=== PATIENT | male | born 1985 | race Caucasian/White ===

== ENCOUNTER 2017-10-23 11:42 | Emergency (ER) | payer OTHER ==
[2017-10-23] MEDS ORDERED: Albuterol 2.5 MG/3 ML NEB.SOL* (0.083%) INH ONE (15:06)
[2017-10-23 15:14] LABS: ABS Basophils 0.1 10^3/ul (0-0.2); ABS Eosinophils 0.2 10^3/ul (0-0.6); ABS Lymphocytes 2.3 10^3/ul (1.0-4.8); ABS Monocytes 0.9 10^3/ul (0-0.8); ABS Neutrophils 9.2 10^3/ul (1.5-7.7); ABS Nucleated RBC 0 10^3/ul; Eosinophil % 1.7 % (0-6); Hematocrit 41 % (42-52); Hemoglobin 14.4 g/dl (14.0-18.0); Lymphocyte % 17.9 % (25-47); Mean Corpuscular HGB Conc 35 g/dl (31-36); Mean Corpuscular Hemoglobin 30 pg (27-31); Mean Corpuscular Volume 85 fL (80-94); Mean Platelet Volume 7 um3 (7.4-10.4); Nucleated Red Blood Cells % 0; Platelet Count 329 10^3/ul (150-450); Red Blood Count 4.82 10^6/ul (4.0-5.4); Red Cell Distribution Width 13 % (10.5-15); White Blood Count 12.8 10^3/ul (3.5-10.8)
--- NOTE | 2017-10-23 15:21 | RAD ---
HISTORY: Coughing up blood COMPARISONS: September 26, 2014 VIEWS: 4: Frontal dual-energy and lateral views of the chest. FINDINGS: CARDIOMEDIASTINAL SILHOUETTE: The cardiomediastinal silhouette is normal. MAXIMILIAN: The maximilian are normal. PLEURA: The costophrenic angles are sharp. No pleural abnormalities are noted. LUNG PARENCHYMA: The lungs are clear. ABDOMEN: The upper abdomen is clear. There is no subphrenic gas. BONES AND SOFT TISSUES: No bone or soft tissue abnormalities are noted. OTHER: None. IMPRESSION: NO ACTIVE CARDIOPULMONARY DISEASE.
[2017-10-23 15:27] LABS: INR 1.06 (0.77-1.02)
[2017-10-23 15:37] LABS: EGFR Non-African American 119.6 (>60)
[2017-10-23] MEDS ORDERED: Acetaminophen TAB* 325 MG ONE (15:47)
[2017-10-23] MEDS ORDERED: Acetaminophen TAB* 325 MG PO ONE (15:48)
[2017-10-23 16:54] LABS: Urine Appearance Cloudy; Urine Blood Negative (Negative); Urine Color Yellow; Urine Ketones 1+ (Negative); Urine Protein Negative (Negative); Urine Specific Gravity 1.018 (1.010-1.030); Urine Urobilinogen Negative (Negative)
[2017-10-23 17:17] VITALS: BP 122/71
--- NOTE | 2017-10-23 19:57 | ED ---
Hussain Younger Angela, scribed for Ciara Pool MD on 10/23/17 at 1455 . Complex/Multi-Sys Presentation - HPI Summary HPI Summary: This pt is a 31 y/o male presenting [facility] c/o headache, cough, cold chills for the past 2 days. Pt states he can't breathe. Pt reports he has been coughing up blood for the past 2 days. The last time he coughed up blood was this morning upon waking up, he took a picture with his phone. The picture shows mucous with bloody streaks. Pt reports he had nausea this morning so he went to the bathroom, and spit up blood. Pt additionally notes fever, max temperature was 102 F last night. He notes these symptoms feel like pneumonia. He did not have a flu shot this year. Pt is a former smoker (quit 3 years ago). PMHx: pneumonia, asthma. NKDA. Surgeries: hernia repair. - History Of Current Complaint Chief Complaint: EDGeneral Time Seen by Provider: 10/23/17 14:40 Hx Obtained From: Patient Onset/Duration: Lasting Days, Still Present Timing: Constant, Days Severity Currently: Moderate Character: Typical Headache Aggravating Factor(s): nothing Alleviating Factor(s): nothing Associated Signs And Symptoms: Positive: Headache, Cough, Hemoptysis, Nausea, Fever - Allergies/Home Medications Allergies/Adverse Reactions: Allergies Allergy/AdvReac Type Severity Reaction Status Date / Time No Known Allergies Allergy Verified 10/23/17 12:24 PMH/Surg Hx/FS Hx/Imm Hx Endocrine/Hematology History: Denies: Hx Diabetes, Hx Thyroid Disease Cardiovascular History: Denies: Hx Hypertension, Hx Pacemaker/ICD Respiratory History: Denies: Hx Chronic Obstructive Pulmonary Disease (COPD) GI History: Denies: Hx Ulcer Neurological History: Denies: Other Neuro Impairments/Disorders Psychiatric History: Denies: Hx Panic Disorder - Surgical History Surgery Procedure, Year, and Place: ABD SURGERY- HERNIA 2012 - [facility] Infectious Disease History: No Infectious Disease History: Denies: Hx Hepatitis, Hx Human Immunodeficiency Virus (HIV), History Other Infectious Disease, Traveled Outside the [place] in Last 30 Days - Family History Known Family History: Positive: Other - Asthma, depression - Social History Alcohol Use: Occasionally Alcohol Amount: past hx ETOH overuse Substance Use Type: Reports: None Smoking Status (MU): Former Smoker Type: Cigarettes Amount Used/How Often: 6 cig./day Review of Systems Positive: Fever, Chills Positive: Cough Positive: Nausea. Negative: Vomiting Positive: Headache All Other Systems Reviewed And Are Negative: Yes Physical Exam - Summary Physical Exam Summary: Appearance: Ill-appearing, no pain distress, Well-nourished Skin: Warm, color reflects adequate perfusion. Pt is diaphoretic. Head: Normal Head/Face inspection Eyes: Conjunctiva clear ENT: Nasal congestion. Erythematous posterior pharynx. Horrible denture. Neck: Supple, no nodes, no JVD Respiratory: Lungs clear, Normal breath sounds. Pt can't take a deep breath without coughing. He has inspiratory wheezes scattered. Cardio: RRR, No murmur, pulses normal, brisk capillary refill Abdomen: soft, nontender Bowel sounds: present Musculoskeletal: Strength Intact/ ROM intact. No calf tenderness. No edema. Neuro: Alert, muscle tone normal, facial symmetry, speech normal, sensory/motor intact Psychological: Normal Triage Information Reviewed: Yes Vital Signs On Initial Exam: Initial Vitals Temp Pulse Resp BP Pulse Ox 98.8 F 96 20 140/89 97 10/23/17 12:21 10/23/17 12:21 10/23/17 12:21 10/23/17 12:21 10/23/17 12:21 Vital Signs Reviewed: Yes Diagnostics - Vital Signs Vital Signs Temp Pulse Resp BP Pulse Ox 10/23/17 12:21 98.8 F 96 20 140/89 97 - Laboratory Lab Results: Lab Results 10/23/17 10/23/17 10/23/17 Range/Units 14:58 14:58 14:58 WBC 12.8 H (3.5-10.8) 10^3/ul RBC 4.82 (4.0-5.4) 10^6/ul Hgb 14.4 (14.0-18.0) g/dl Hct 41 L (42-52) % MCV 85 (80-94) fL MCH 30 (27-31) pg MCHC 35 (31-36) g/dl RDW 13 (10.5-15) % Plt Count 329 (150-450) 10^3/ul MPV 7 L (7.4-10.4) um3 Neut % (Auto) 72.3 (38-83) % Lymph % (Auto) 17.9 L (25-47) % [place] % (Auto) 7.4 (1-9) % Eos % (Auto) 1.7 (0-6) % Baso % (Auto) 0.7 (0-2) % Absolute Neuts (auto) 9.2 H (1.5-7.7) 10^3/ul Absolute Lymphs (auto) 2.3 (1.0-4.8) 10^3/ul Absolute Monos (auto) 0.9 H (0-0.8) 10^3/ul Absolute Eos (auto) 0.2 (0-0.6) 10^3/ul Absolute Basos (auto) 0.1 (0-0.2) 10^3/ul Absolute Nucleated RBC 0 10^3/ul Nucleated RBC % 0 INR (Anticoag Therapy) 1.06 H (0.77-1.02) APTT 32.0 (26.0-36.3) seconds D-Dimer, Quantitative < 200 (Less Than 230) ng/mL Sodium 136 (133-145) mmol/L Potassium 3.6 (3.5-5.0) mmol/L Chloride 105 (101-111) mmol/L Carbon Dioxide 24 (22-32) mmol/L Anion Gap 7 (2-11) mmol/L BUN 10 (6-24) mg/dL Creatinine 0.76 (0.67-1.17) mg/dL Est GFR ( Amer) 153.8 (>60) Est GFR (Non-Af Amer) 119.6 (>60) BUN/Creatinine Ratio 13.2 (8-20) Glucose 92 (70-100) mg/dL Lactic Acid (0.5-2.0) mmol/L Calcium 9.1 (8.6-10.3) mg/dL Total Bilirubin 0.60 (0.2-1.0) mg/dL AST 14 (13-39) U/L ALT 16 (7-52) U/L Alkaline Phosphatase 97 (34-104) U/L Total Creatine Kinase 113 (10-223) U/L CK-MB (CK-2) 1.5 (0.6-6.3) ng/mL Troponin I 0.01 (<0.04) ng/mL C-Reactive Protein 42.41 H (< 5.00) mg/L Total Protein 6.8 (6.4-8.9) g/dL Albumin 3.7 (3.2-5.2) g/dL Globulin 3.1 (2-4) g/dL Albumin/Globulin Ratio 1.2 (1-3) Urine Color Urine Appearance Urine pH (5-9) Ur Specific [place] (1.010-1.030) Urine Protein (Negative) Urine Ketones (Negative) Urine Blood (Negative) Urine Nitrate (Negative) Urine Bilirubin (Negative) Urine Urobilinogen (Negative) Ur Leukocyte Esterase (Negative) Urine Glucose (Negative) Influenza A (Rapid) (Negative) Influenza B (Rapid) (Negative) 10/23/17 10/23/17 10/23/17 Range/Units 14:58 15:55 16:08 WBC (3.5-10.8) 10^3/ul RBC (4.0-5.4) 10^6/ul Hgb (14.0-18.0) g/dl Hct (42-52) % MCV (80-94) fL MCH (27-31) pg MCHC (31-36) g/dl RDW (10.5-15) % Plt Count (150-450) 10^3/ul MPV (7.4-10.4) um3 Neut % (Auto) (38-83) % Lymph % (Auto) (25-47) % [place] % (Auto) (1-9) % Eos % (Auto) (0-6) % Baso % (Auto) (0-2) % Absolute Neuts (auto) (1.5-7.7) 10^3/ul Absolute Lymphs (auto) (1.0-4.8) 10^3/ul Absolute Monos (auto) (0-0.8) 10^3/ul Absolute Eos (auto) (0-0.6) 10^3/ul Absolute Basos (auto) (0-0.2) 10^3/ul Absolute Nucleated RBC 10^3/ul Nucleated RBC % INR (Anticoag Therapy) (0.77-1.02) APTT (26.0-36.3) seconds D-Dimer, Quantitative (Less Than 230) ng/mL Sodium (133-145) mmol/L Potassium (3.5-5.0) mmol/L Chloride (101-111) mmol/L Carbon Dioxide (22-32) mmol/L Anion Gap (2-11) mmol/L BUN (6-24) mg/dL Creatinine (0.67-1.17) mg/dL Est GFR ( Amer) (>60) Est GFR (Non-Af Amer) (>60) BUN/Creatinine Ratio (8-20) Glucose (70-100) mg/dL Lactic Acid 0.9 (0.5-2.0) mmol/L Calcium (8.6-10.3) mg/dL Total Bilirubin (0.2-1.0) mg/dL AST (13-39) U/L ALT (7-52) U/L Alkaline Phosphatase (34-104) U/L Total Creatine Kinase (10-223) U/L CK-MB (CK-2) (0.6-6.3) ng/mL Troponin I (<0.04) ng/mL C-Reactive Protein (< 5.00) mg/L Total Protein (6.4-8.9) g/dL Albumin (3.2-5.2) g/dL Globulin (2-4) g/dL Albumin/Globulin Ratio (1-3) Urine Color Yellow Urine Appearance Cloudy Urine pH 7.0 (5-9) Ur Specific [place] 1.018 (1.010-1.030) Urine Protein Negative (Negative) Urine Ketones 1+ H (Negative) Urine Blood Negative (Negative) Urine Nitrate Negative (Negative) Urine Bilirubin Negative (Negative) Urine Urobilinogen Negative (Negative) Ur Leukocyte Esterase Negative (Negative) Urine Glucose Negative (Negative) Influenza A (Rapid) Negative (Negative) Influenza B (Rapid) Negative (Negative) Result Diagrams: 10/23/17 14:58 10/23/17 14:58 Lab Statement: Any lab studies that have been ordered have been reviewed, and results considered in the medical decision making process. - Radiology Chest XR Xray Interpretation: No Acute Changes - IMPRESSION: No active cardiopulmonary disease. Dr. Pool has reviewed this radiology report. Radiology Interpretation Completed By: Radiologist Re-Evaluation - Re-Evaluation First Eval Re-Evaluation Time: 17:07 Comment: I reviewed the XR and lab results with the pt. Complex Multi-Symp Course/Dx Course Of Treatment: Pt medications reviewed this visit. High blood pressure noted. Rapid influenza A and B are negative. Pt will be discharged to home with a prescription for Azithromycin, prednisone, and albuterol inhaler. - Diagnoses Provider Diagnoses: Elevated blood pressure reading without diagnosis of hypertension, Bronchitis, Hemoptysis Discharge - Discharge Plan Condition: Stable Disposition: HOME Prescriptions: Albuterol HFA INHALER* [Ventolin HFA Inhaler*] 1 - 2 puff INH Q4H PRN #1 mdi PRN Reason: Cough Azithromycin TAB* [Zithromax TAB (Z-ZENON) 250 mg #6 tabs] 2 tab PO .TODAY, THEN 1 DAILY #1 zenon predniSONE TAB* [Deltasone TAB*] 40 mg PO DAILY #10 tab Patient Education Materials: Acute Bronchitis (ED), Hemoptysis (ED) Forms: *Work Release Referrals: [facility] PHYSICIAN REFERRAL [Outside] No Primary Care Phys,NOPCP [Primary Care Provider] - Additional Instructions: We feel that the cause of the blood in your mucous is bronchits. Call Wendy Negro to get established with a primary care provider. Take your medications as directed. Return to the ER if you have any new or worsening symptoms. The documentation as recorded by the Hussain garcia Angela accurately reflects the service I personally performed and the decisions made by , Ciara Pool MD.
== END 2017-10-23 17:16 | disposition home or self-care (01) ==
LOC: ED 11:42
DX: R03.0 Elevated blood-pressure reading, without diagnosis of hypertension (principal); J40 Bronchitis, not specified as acute or chronic; R04.2 Hemoptysis; R51 Headache; R05 Cough; R50.9 Fever, unspecified; R11.0 Nausea; Z87.891 Personal history of nicotine dependence
CPT/HCPCS: 36415; 71046; 80053; 81003; 82550; 82553; 83605; 84484; 85025; 85379; 85610; 85730; 86140; 87070; 87077; 87205; 87502; 94640; 99283; A9270-GY

== ENCOUNTER 2018-03-03 12:58 | Emergency (ER) | payer BC, OTHER ==
[2018-03-03 13:38] VITALS: BP 124/74
--- NOTE | 2018-03-03 14:00 | UC ---
Eye Complaint HPI - HPI Summary HPI Summary: Patient presents with 1-2 week onset progressively worsening right external eye itching. He states the corner of his eye has been driving him crazy. He complains of itching and he cannot leave it alone. He states today the outside of his eye began to turn red, and swell up. He states this all itches also. He denies any eye drainage visual changes, or pain with movement of the eye. He denies any injury or trauma. - History of Current Complaint Chief Complaint: UCEye Stated Complaint: EYE IRRITATION Time Seen by Provider: 03/03/18 13:34 Hx Obtained From: Patient Onset/Duration: Gradual Onset, Lasting Weeks Timing: Constant Severity Initially: Mild Severity Currently: Moderate Pain Intensity: 4 Location of Injury: Eye Lid (lower), Eye Lid (upper) Alleviating Factor(s): Other - itching it Associated Signs And Symptoms: Positive: Negative - Risk Factors Penetrating Injury Risk Factor: Negative Acute Glaucoma Risk Factors: Negative Optic Artery Occlusion Risk Factors: Negative - Allergies/Home Medications Allergies/Adverse Reactions: Allergies Allergy/AdvReac Type Severity Reaction Status Date / Time No Known Allergies Allergy Verified 03/03/18 13:30 PMH/Surg Hx/FS Hx/Imm Hx Previously Healthy: Yes - Surgical History Surgical History: Yes Surgery Procedure, Year, and Place: ABD SURGERY- HERNIA 2012 - [facility] [place] - Family History Known Family History: Positive: None, Other - Asthma, depression - Social History Occupation: Employed Full-time Lives: With Family Alcohol Use: Occasionally Alcohol Amount: past hx ETOH overuse Substance Use Type: None Smoking Status (MU): Former Smoker Type: Cigarettes Amount Used/How Often: 6 cig./day QAUIT 2 YEARS AGO Household Exposure Type: Cigarettes Review of Systems Constitutional: Negative Skin: Negative, Other Eyes: Negative ENT: Negative Respiratory: Negative Cardiovascular: Negative Gastrointestinal: Negative Genitourinary: Negative Motor: Negative Neurovascular: Negative Musculoskeletal: Negative Neurological: Negative Psychological: Negative Is Patient Immunocompromised?: No All Other Systems Reviewed And Are Negative: Yes Physical Exam Triage Information Reviewed: Yes Appearance: Well-Appearing Vital Signs: Initial Vital Signs Temp 98.0 F 03/03/18 13:30 Pulse 86 03/03/18 13:30 Resp 16 03/03/18 13:30 BP 124/74 03/03/18 13:30 Pulse Ox 98 03/03/18 13:30 Vital Signs Reviewed: Yes Eye Exam: Normal Eyes: Positive: Other: - upper and lower eye lids erythemic, and slighly edematous dry and appear inflammed. ENT Exam: Normal Neck exam: Normal Respiratory Exam: Normal Cardiovascular Exam: Normal Eye Complaint Course/Dx - Course Course Of Treatment: Patient was treated for what most likely is allergic atophy of the right eye. He was treated with prednisone 20 mg one tablet bid x 5 days, benedryl 25 mg four times daily and benedry topical cream to the surrounding tissue of his eye, to avoid getting any cream in his eye. He did not have any symptoms consisent with a bacterial eye or soft tissue infections.I did ask the patient to apply cool compress when the cornder of his eye itches to sooth the eye, and he could introduce infection if he keep rubbing it. He was taken out of work today and he may return to work tomorrow. He was told to follow up with the eye doctor if his symptoms do not improve as anticipated. He verbalized nderstanding of and was in agreement with the dischage plan. - Differential Dx/Diagnosis Differential Diagnosis/HQI/PQRI: Other - allergic conjunctivitis Provider Diagnoses: allergic connunctivitis. suspect insect bite Discharge - Sign-Out/Discharge Documenting (check all that apply): Discharge/Admit/Transfer - Discharge Plan Condition: Stable Disposition: HOME Prescriptions: Diphenhydramine HCl/Zinc Acet [Benadryl] 1 cre EX QID #1 cre diPHENhydraMINE PO* [Benadryl PO 25 MG TAB*] 25 mg PO Q6H PRN #14 tab MDD 4 PRN Reason: Itching Olopatadine 0.1% OPHTH (NF) [Patanol 0.1% OPHTH (NF)] 0.1 % OP BID #1 laura predniSONE TAB* [Deltasone TAB*] 20 mg PO BID #10 tab Patient Education Materials: Conjunctivitis (ED), Allergies (ED) Forms: *Work Release Referrals: No Primary Care Phys,NOPCP [Primary Care Provider] - Kojo Florence MD [Medical Doctor] - - Billing Disposition and Condition Condition: STABLE Disposition: HOME
== END 2018-03-03 13:59 | disposition home or self-care (01) ==
LOC: UCEAST 12:58
DX: H10.11 Acute atopic conjunctivitis, right eye (principal); Z87.891 Personal history of nicotine dependence
CPT/HCPCS: 99212; G0463

== ENCOUNTER 2018-03-04 13:14 | Emergency (ER) | payer BC ==
[2018-03-04] MEDS ORDERED: Famotidine TAB* 20 MG PO ONE (15:21)
[2018-03-04] MEDS ORDERED: hydrOXYzine HCL TAB* 50 MG PO ONE (15:21)
[2018-03-04] MEDS ORDERED: diPHENhydraMINE IV* 50 MG/ML 1 ml VIAL (BENADRYL) IM ONE (15:21)
[2018-03-04] MEDS ORDERED: methylPREDNISolone 125 MG* 2 ML VIAL IM ONE (15:22)
[2018-03-04] MEDS ORDERED: Polymyx/Trimethoprim OPTH* 10 ML BTL RIGHT EYE SCH (15:30)
[2018-03-04] MEDS ORDERED: Cephalexin CAP* 500 MG PO ONE (16:08)
--- NOTE | 2018-03-04 16:17 | ED ---
Skin Complaint - HPI Summary HPI Summary: Patient is a 32-year-old male presenting to the ED with worsening erythema, warmth, swelling to the right eye. He states he was seen at urgent care yesterday and was given Benadryl and prednisone. He states overnight the eye became worse as he was unable to fill the prednisone and could not refill the eyedrops due to financial issues. He is now complaining of the same erythema and itching to the left cheek and to the right ear. He feels this is spreading. Denies any fevers, sweats, chills. Unknown if he has had an environmental exposure. No known allergies. He has been otherwise healthy. He denies any visual changes or disturbances. Denies any conjunctival injection. Denies any eye pain or pain around the eye. He endorses 10/10 pruritus to the affected areas. - History of Current Complaint Chief Complaint: EDEyeProblem Time Seen by Provider: 03/04/18 15:16 Stated Complaint: RT EYE SWELLING-SEEN 03/03 Hx Obtained From: Patient, Family/Adaptive Physical Educator Onset/Duration: Started Weeks Ago Skin Exposure Onset/Duration: Days Ago Timing: Constant Onset Severity: Moderate Current Severity: Moderate Pain Intensity: 2 Pain Scale Used: 0-10 Numeric Skin Location: Discrete - R eye Character: Swelling, Pruritus, Pain, Redness, Raised Aggravating Symptom(s): Nothing Alleviating Symptom(s): Nothing Associated Signs & Symptoms: Negative Related History: Insect Bite/Sting, Possible Reaction to: Environmental Exposure - Allergy/Home Medications Allergies/Adverse Reactions: Allergies Allergy/AdvReac Type Severity Reaction Status Date / Time No Known Allergies Allergy Verified 03/03/18 13:30 Home Medications: Home Medications Diphenhydramine HCl/Zinc Acet [Benadryl] 1 cre TOPICAL QID 03/04/18 [History Confirmed 03/04/18] Olopatadine 0.1% OPHTH (NF) [Patanol 0.1% OPHTH (NF)] 0.1 % RIGHT EYE BID [History Confirmed 03/04/18] PMH/Surg Hx/FS Hx/Imm Hx Previously Healthy: Yes - Social Endocrine/Hematology History: Denies: Hx Diabetes, Hx Thyroid Disease Cardiovascular History: Denies: Hx Hypertension, Hx Pacemaker/ICD Respiratory History: Reports: Hx Asthma, Hx Pneumonia Denies: Hx Chronic Obstructive Pulmonary Disease (COPD) GI History: Denies: Hx Ulcer Sensory History: Denies: Hx Contacts or Glasses Opthamlomology History: Denies: Hx Contacts or Glasses Neurological History: Denies: Other Neuro Impairments/Disorders Psychiatric History: Denies: Hx Panic Disorder - Surgical History Surgery Procedure, Year, and Place: ABD SURGERY- HERNIA 2012 - [facility] [place] Infectious Disease History: No Infectious Disease History: Denies: Hx Hepatitis, Hx Human Immunodeficiency Virus (HIV), History Other Infectious Disease, Traveled Outside the [place] in Last 30 Days - Family History Known Family History: Positive: None, Other - Asthma, depression - Social History Occupation: Employed Full-time Lives: With Family Alcohol Use: None Alcohol Amount: past hx ETOH overuse Hx Substance Use: No Substance Use Type: Reports: None Hx Tobacco Use: Yes Smoking Status (MU): Former Smoker Type: Cigarettes Amount Used/How Often: 6 cig./day QAUIT 2 YEARS AGO Review of Systems Constitutional: Negative Negative: Fever, Chills, Fatigue Cardiovascular: Negative Negative: Palpitations, Chest Pain Respiratory: Negative Negative: Shortness Of Breath, Cough Genitourinary: Negative Positive: no symptoms reported, see HPI Negative: Rash, Bruising - slightly raised erythematous rash with rough surface without papules/pustules or drainage to the R eye Neurological: Negative All Other Systems Reviewed And Are Negative: Yes Physical Exam Triage Information Reviewed: Yes Vital Signs On Initial Exam: Initial Vitals Temp Pulse Resp BP Pulse Ox 97.8 F 63 18 129/81 97 03/04/18 13:31 03/04/18 13:31 03/04/18 13:31 03/04/18 13:31 03/04/18 13:31 Vital Signs Reviewed: Yes Appearance: Positive: Pain Distress Skin: Positive: Skin Color Reflects Adequate Perfusion, Other - slightly raised erythematous rash with rough surface without papules/pustules or drainage to the R eye Head/Face: Positive: Normal Head/Face Inspection Eyes: Positive: EOMI, INES, Conjunctiva Clear, Other: - no discharge or injection is noted/ no entrapment Neck: Positive: Supple, No Lymphadenopathy Respiratory/Lung Sounds: Positive: Clear to Auscultation, Breath Sounds Present Cardiovascular: Positive: RRR, Pulses are Symmetrical in both Upper and Lower Extremities Musculoskeletal: Positive: Normal, Strength/ROM Intact Neurological: Positive: Sensory/Motor Intact, Alert, Oriented to Person Place, Time, Speech Normal Psychiatric: Positive: Normal, Affect/Mood Appropriate AVPU Assessment: Alert Diagnostics - Vital Signs Vital Signs Temp Pulse Resp BP Pulse Ox 03/04/18 13:31 97.8 F 63 18 129/81 97 - Laboratory Lab Statement: Any lab studies that have been ordered have been reviewed, and results considered in the medical decision making process. Course/Dx - Course Course Of Treatment: Patient presents with 1 day worsening slightly raised erythematous rash with rough surface without papules/pustules or drainage to the R eye. He states the area has spread since yesterday despite the Benadryl he was given. He was also not able to fill the prescription he received from [facility] care of prednisone or eyedrops. He denies any known environmental exposure. Denies any fevers, sweats, chills. Denies any visual disturbances or changes. Denies any headaches. On physical examination there appears to be no eye entrapment, no conjunctival injection or tearing from the eye. The erythema and swelling is circumferential around the eye extending into the bridge of the nose. There is also slightly raised rough patch to the left cheek and to the right ear which appears to be from the spreading of an environmental exposure. However, due to the warmth, swelling and proximity to the eye, we will cover prophylactically for a septal cellulitis. He will fill the prescription for prednisone, Keflex and hydroxyzine. I have discussed return precautions including pain to the eye, worsening swelling, worsening spreading of the erythema or warmth or any visual changes or disturbances or if he has any pain to the eye. He understands these. - Diagnoses Provider Diagnoses: Contact dermatitis of right eyelid Discharge - Sign-Out/Discharge Documenting (check all that apply): Discharge/Admit/Transfer - Discharge Plan Condition: Stable Disposition: HOME Patient Education Materials: Contact Dermatitis (ED) Referrals: No Primary Care Phys,NOPCP [Primary Care Provider] - Additional Instructions: Take Keflex 4 times daily 7 days Prednisone twice daily 5 days Hydroxyzine may be taken up to 3 times daily, but do not drive while taking this medication as it may make you drowsy Continue with Benadryl - Billing Disposition and Condition Condition: STABLE Disposition: HOME Images - Images Head: 1 - erythema, warmth with raised rough patch without papules or pustules 2 - erythema, warmth with raised rough patch without papules or pustules 3 - erythema, warmth with raised rough patch without papules or pustules
[2018-03-04 17:31] VITALS: BP 120/75
== END 2018-03-04 17:30 | disposition home or self-care (01) ==
LOC: ED 13:14
DX: L25.9 Unspecified contact dermatitis, unspecified cause (principal); J45.909 Unspecified asthma, uncomplicated; Z87.891 Personal history of nicotine dependence
CPT/HCPCS: 96372; 99282; A9270-GY; J1200; J2930

== ENCOUNTER 2018-05-12 11:17 | Emergency (ER) | payer BC ==
[2018-05-12 13:58] VITALS: BP 118/69
--- NOTE | 2018-05-12 14:07 | ED ---
Skin Complaint - HPI Summary HPI Summary: Patient is a 32-year-old methamphetamine user who injects frequently presenting to the ED with 3 approximately 3 cm in diameter erythematous indurated only slightly raised areas. One just superior to the anterior right elbow, 1 to the posterior forearm and one to the posterior left forearm. Present for 2-3 days. He denies injecting in the sites. He denies any fevers, sweats, chills. - History of Current Complaint Chief Complaint: EDRashSkinAbscess Time Seen by Provider: 05/12/18 12:18 Stated Complaint: SWELLING ON ARMS Hx Obtained From: Patient Onset/Duration: Started Days Ago Skin Exposure Onset/Duration: Days Ago Timing: Constant Onset Severity: Moderate Current Severity: Moderate Pain Intensity: 4 Pain Scale Used: 0-10 Numeric Skin Location: Diffuse Character: Swelling, Pain, Redness, Raised, Painful Aggravating Symptom(s): Touch Alleviating Symptom(s): Nothing Associated Signs & Symptoms: Tenderness Related History: Trauma - Allergy/Home Medications Allergies/Adverse Reactions: Allergies Allergy/AdvReac Type Severity Reaction Status Date / Time No Known Allergies Allergy Verified 05/12/18 12:02 PMH/Surg Hx/FS Hx/Imm Hx Previously Healthy: Yes Endocrine/Hematology History: Denies: Hx Diabetes, Hx Thyroid Disease Cardiovascular History: Denies: Hx Hypertension, Hx Pacemaker/ICD Respiratory History: Reports: Hx Asthma, Hx Pneumonia Denies: Hx Chronic Obstructive Pulmonary Disease (COPD) GI History: Denies: Hx Ulcer Sensory History: Denies: Hx Contacts or Glasses Opthamlomology History: Denies: Hx Contacts or Glasses Neurological History: Denies: Other Neuro Impairments/Disorders Psychiatric History: Denies: Hx Panic Disorder - Surgical History Surgery Procedure, Year, and Place: ABD SURGERY- HERNIA 2012 - [facility] – [place] - Immunization History Hx Pertussis Vaccination: No Immunizations Up to Date: Unable to Obtain/Confirm Infectious Disease History: No Infectious Disease History: Denies: Hx Hepatitis, Hx Human Immunodeficiency Virus (HIV), History Other Infectious Disease, Traveled Outside the [place] in Last 30 Days - Family History Known Family History: Positive: None, Other - Asthma, depression - Social History Occupation: Employed Full-time Lives: With Family Alcohol Use: None Alcohol Amount: past hx ETOH overuse Hx Substance Use: No Substance Use Type: Reports: Marijuana Substance Use Comment - Amount & Last Used: meth-"rarely" Hx Tobacco Use: Yes Smoking Status (MU): Former Smoker Type: Cigarettes Amount Used/How Often: 6 cig./day QAUIT 2 YEARS AGO Review of Systems Constitutional: Negative Negative: Fever, Chills, Fatigue, Skin Diaphoresis Negative: Shortness Of Breath, Cough Negative: Abdominal Pain, Vomiting, Nausea Genitourinary: Negative Positive: see HPI Negative: Arthralgia, Myalgia Positive: Other - 3 abscesses to the forearms/upper arm Neurological: Negative All Other Systems Reviewed And Are Negative: Yes Physical Exam Triage Information Reviewed: Yes Vital Signs On Initial Exam: Initial Vitals Temp Pulse Resp BP Pulse Ox 97.4 F 94 16 141/83 98 05/12/18 11:25 05/12/18 11:25 05/12/18 11:25 05/12/18 11:25 05/12/18 11:25 Vital Signs Reviewed: Yes Appearance: Positive: Well-Appearing, Well-Nourished Skin: Positive: Warm, Skin Color Reflects Adequate Perfusion, Other - 3 abscesses identified Head/Face: Positive: Normal Head/Face Inspection Eyes: Positive: EOMI, INES, Conjunctiva Clear Neck: Positive: Supple, No Lymphadenopathy Respiratory/Lung Sounds: Positive: Clear to Auscultation, Breath Sounds Present Cardiovascular: Positive: RRR, Pulses are Symmetrical in both Upper and Lower Extremities Musculoskeletal: Positive: Strength/ROM Intact Neurological: Positive: Alert, Oriented to Person Place, Time Psychiatric: Positive: Normal AVPU Assessment: Alert Diagnostics - Vital Signs Vital Signs Temp Pulse Resp BP Pulse Ox 05/12/18 13:58 98.2 F 88 16 118/69 100 05/12/18 11:25 97.4 F 94 16 141/83 98 - Laboratory Lab Statement: Any lab studies that have been ordered have been reviewed, and results considered in the medical decision making process. Course/Dx - Course Course Of Treatment: During the course of treatment, the patient is evaluated for 3 abscesses secondary to IV drug use. Used ultrasound to identify loculated area of abscess with less than 0.3 cm in depth. Attempted to aspirate the abscess without effect. Full range of motion without issues. No evidence of a pyomyositis. Patient placed on Bactrim and is given strict return precautions. - Differential Diagnoses - Skin Complaint Differential Diagnoses: Abscess, Cellulitis - Diagnoses Provider Diagnoses: Abscess Discharge - Sign-Out/Discharge Documenting (check all that apply): Patient Departure - Discharge Plan Condition: Stable Disposition: HOME Prescriptions: Sulfamethox/Trimethoprim DS* [Bactrim DS 800/160 TAB*] 1 tab PO BID #10 tab MDD 2 Patient Education Materials: Abscess (ED) Referrals: No Primary Care Phys,NOPCP [Primary Care Provider] - Additional Instructions: warm compresses to the area Bactrim twice daily 5 days Do not discontinue this medication even if you begin to feel better - Billing Disposition and Condition Condition: STABLE Disposition: Home
--- NOTE | 2018-05-12 16:36 | ED ---
Progress - Progress Note Progress Note: I supervised the care of the physician recruiting assistant and I performed a history and physical on this patient. History: Patient is an injection drug user of methamphetamines. He presents with red painful sores on both forearms. These are not incites that he has previously injected Physical exam: 3 separate sites between both forearms of erythema, induration and tenderness. Largest is approximately 2 cm in diameter. Plan: I examined these with bedside ultrasound and found them to have minimal amounts of free fluid and some cobblestoning. We will attempt needle aspiration and placed the patient on antibiotics. Course/Dx - Course Course Of Treatment: During the course of treatment, the patient is evaluated for 3 abscesses secondary to IV drug use. Used ultrasound to identify loculated area of abscess with less than 0.3 cm in depth. Attempted to aspirate the abscess without effect. Full range of motion without issues. No evidence of a pyomyositis. Patient placed on Bactrim and is given strict return precautions. - Diagnoses Provider Diagnoses: Abscess, IVDU (intravenous drug user) Discharge - Sign-Out/Discharge Documenting (check all that apply): Patient Departure - Discharge Plan Condition: Stable Disposition: HOME Prescriptions: Sulfamethox/Trimethoprim DS* [Bactrim DS 800/160 TAB*] 1 tab PO BID #10 tab MDD 2 Patient Education Materials: Abscess (ED) Referrals: No Primary Care Phys,NOPCP [Primary Care Provider] - Additional Instructions: warm compresses to the area Bactrim twice daily 5 days Do not discontinue this medication even if you begin to feel better - Billing Disposition and Condition Condition: STABLE Disposition: Home
== END 2018-05-12 13:58 | disposition home or self-care (01) ==
LOC: ED 11:17
DX: L02.414 Cutaneous abscess of left upper limb (principal); L02.413 Cutaneous abscess of right upper limb; F15.10 Other stimulant abuse, uncomplicated; Z87.891 Personal history of nicotine dependence
CPT/HCPCS: 99282

== ENCOUNTER → 2018-05-15 17:11 | Emergency (ER) | payer BC ==
[~2018-05-15 17:11] MED LIST: Clindamycin CAP* 150 MG PO ONE
[2018-05-15 17:26] VITALS: BP 138/97
--- NOTE | 2018-05-15 18:55 | ED ---
Skin Complaint - HPI Summary HPI Summary: 32 male presents ER with complaints of rash on bilateral extremities that began approximately 5 days ago. Patient states he was seen 3 days ago placed on Bactrim for this however feels it has not improved. Unknown if it was originally from insect bites. States she has 2 red swollen areas one on each arm. States they're tender to touch. Denies fever chills red streaking or drainage. Admits to IV drug use however states she has not injected in either arm and says he has not done so in a few weeks. Denies known history of MRSA. No other complaints. No past medical history. No rash elsewhere. States last time he was here he had an ultrasound that did not show any significant abscess and also had attempted needle aspiration without success or drainage. - History of Current Complaint Chief Complaint: EDRashSkinAbscess Time Seen by Provider: 05/15/18 18:17 Stated Complaint: BILATERAL ARM RASH Hx Obtained From: Patient Onset/Duration: Started Days Ago Skin Exposure Onset/Duration: Days Ago Timing: Constant Onset Severity: Mild Current Severity: Mild Pain Intensity: 1 Pain Scale Used: 0-10 Numeric Skin Location: Arm Character: Swelling, Redness, Raised, Painful Aggravating Symptom(s): Touch Alleviating Symptom(s): Nothing Associated Signs & Symptoms: Rash Related History: Insect Bite/Sting - Possibly per patient - Allergy/Home Medications Allergies/Adverse Reactions: Allergies Allergy/AdvReac Type Severity Reaction Status Date / Time No Known Allergies Allergy Verified 05/15/18 17:26 PMH/Surg Hx/FS Hx/Imm Hx Endocrine/Hematology History: Denies: Hx Diabetes, Hx Thyroid Disease Cardiovascular History: Denies: Hx Hypertension, Hx Pacemaker/ICD Respiratory History: Reports: Hx Asthma, Hx Pneumonia Denies: Hx Chronic Obstructive Pulmonary Disease (COPD) GI History: Denies: Hx Ulcer Sensory History: Denies: Hx Contacts or Glasses Opthamlomology History: Denies: Hx Contacts or Glasses Neurological History: Denies: Other Neuro Impairments/Disorders Psychiatric History: Denies: Hx Panic Disorder - Surgical History Surgery Procedure, Year, and Place: ABD SURGERY- HERNIA 2012 - [facility] – [place] - Immunization History Immunizations Up to Date: Yes Infectious Disease History: No Infectious Disease History: Denies: Hx Hepatitis, Hx Human Immunodeficiency Virus (HIV), History Other Infectious Disease, Traveled Outside the [place] in Last 30 Days - Family History Known Family History: Positive: None, Other - Asthma, depression - Social History Alcohol Use: None Alcohol Amount: past hx ETOH overuse Hx Substance Use: No Substance Use Type: Reports: Marijuana Substance Use Comment - Amount & Last Used: meth-"rarely" Hx Tobacco Use: Yes Smoking Status (MU): Former Smoker Type: Cigarettes Amount Used/How Often: 6 cig./day QUIT 2 YEARS AGO Review of Systems Constitutional: Negative Cardiovascular: Negative Respiratory: Negative Gastrointestinal: Negative Positive: Rash Neurological: Negative All Other Systems Reviewed And Are Negative: Yes Physical Exam Triage Information Reviewed: Yes Vital Signs On Initial Exam: Initial Vitals Temp Pulse Resp BP Pulse Ox 97.4 F 76 18 138/97 97 05/15/18 17:21 05/15/18 17:21 05/15/18 17:21 05/15/18 17:21 05/15/18 17:21 Vital Signs Reviewed: Yes Appearance: Positive: Well-Appearing, No Pain Distress, Well-Nourished Skin: Positive: Warm, Skin Color Reflects Adequate Perfusion, Dry, Erythema @ - Two erythematous, edematous, tender, indurated areas signs of a nickel one in the right antecubital fossa area on left dorsal forearm. No red streaking or lymphangitis. No drainage or fluctuance. Firm to touch., Other - Rest of skin exam normal. No obvious tract schmidt noted. Negative: Cold, Numb Head/Face: Positive: Normal Head/Face Inspection Eyes: Positive: Conjunctiva Clear ENT: Positive: Hearing grossly normal Neck: Positive: Supple, Nontender, No Lymphadenopathy Respiratory/Lung Sounds: Positive: Clear to Auscultation, Breath Sounds Present. Negative: Rales, Rhonchi, Wheezes Cardiovascular: Positive: Normal, RRR, Pulses are Symmetrical in both Upper and Lower Extremities. Negative: Murmur, Rub Bowel Sounds: Positive: Present Musculoskeletal: Positive: Normal, Strength/ROM Intact. Negative: Limited @, Interruption @, Abnormal @, Pain @ Neurological: Positive: Normal, Sensory/Motor Intact, Alert, Oriented to Person Place, Time, NV Bundle Intact Distally, Normal Gait Diagnostics - Vital Signs Vital Signs Temp Pulse Resp BP Pulse Ox 05/15/18 17:21 97.4 F 76 18 138/97 97 - Laboratory Lab Statement: Any lab studies that have been ordered have been reviewed, and results considered in the medical decision making process. Course/Dx - Course Course Of Treatment: Appears patient did not give antibiotics sufficient amount of time to improve cellulitis. No fluctuance to suggest requirement of I&D at this time. Recent ultrasound showed no abscess formation. Will switch to clindamycin frequent use of warm compresses and trial of oral Benadryl. Patient agitated this may turn into abscesses that need to be drained however are not ready at this time. Recommended giving antibiotics approximately 7 days before seeing significant signs of improvement. Follow-up with primary care. Aware worsening signs and symptoms watch out for such as red streaking, fluctuance, lymphangitis or fever. Patient agrees and understands. All questions were answered. No other concerns at this time. Rest of exam and vitals were normal. - Differential Diagnoses - Skin Complaint Differential Diagnoses: Abscess, Cellulitis, Local Allergic Reaction, MRSA, Other - Insect bite - Diagnoses Provider Diagnoses: Cellulitis Discharge - Sign-Out/Discharge Documenting (check all that apply): Patient Departure - Discharge Plan Condition: Good Disposition: HOME Prescriptions: Clindamycin Cap(NF) [Clindamycin Cap 300 mg Cap(NF)] 300 mg PO Q6H #30 cap Patient Education Materials: Cellulitis (ED) Referrals: No Primary Care Phys,NOPCP [Primary Care Provider] - [facility] [place] PHYSICIAN REFERRAL [Outside] Additional Instructions: Take prescribed medication as directed. discontinue old antibiotic. give treatment approximately 5-7 days to see some improvement. Do not stop taking medication even if symptoms improve completely entire dose. Recommend taking probiotics in between doses. Apply warm compresses several times daily. Recommend trying Benadryl at bedtime. If symptoms do not improve or worsen (become squishy, you develop red streaking or fever) please return and seek medical attention promptly as discussed. - Billing Disposition and Condition Condition: GOOD Disposition: Home
== END | disposition home or self-care (01) ==
LOC: ED 17:11
DX: L03.114 Cellulitis of left upper limb (principal); L03.113 Cellulitis of right upper limb; Z87.891 Personal history of nicotine dependence
CPT/HCPCS: 99281; A9270-GY

== ENCOUNTER 2018-05-19 16:14 | Emergency (ER) | payer BC ==
[2018-05-19 16:26] VITALS: BP 120/90
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
--- NOTE | 2018-05-19 17:01 | RAD ---
INDICATION: Right hand injury. TECHNIQUE: 4 views of the right hand were obtained. FINDINGS: There is soft tissue swelling dorsal to the distal metacarpal bones. No fracture is seen. Joint spaces appear maintained. IMPRESSION: NO EVIDENCE FOR FRACTURE.
== END 2018-05-19 17:24 | disposition home or self-care (01) ==
LOC: UCEAST 16:14
DX: S60.511A Abrasion of right hand, initial encounter (principal); W22.09XA Striking against other stationary object, initial encounter; Y93.89 Activity, other specified; Y92.9 Unspecified place or not applicable; Z87.891 Personal history of nicotine dependence
CPT/HCPCS: 99212; G0463

== ENCOUNTER 2018-06-05 13:54 | Emergency (ER) | payer BC ==
[2018-06-05] MEDS ORDERED: Ketorolac INJ* 60 MG/2 ML VIAL IM ONE (17:07)
[2018-06-05] MEDS ORDERED: Cyclobenzaprine TAB* 10 MG PO ONE (17:09)
[2018-06-05] MEDS ORDERED: predniSONE TAB* 20 MG PO ONE (17:09)
--- NOTE | 2018-06-05 17:22 | ED ---
Back Pain - HPI Summary HPI Summary: Pt is a 32 y/o male who presents to the ED c/o back pain. He states 3 days ago he twisted his back the wrong way, and since then hes been having sharp pain radiating down his right leg. Pt states he cant put pressure on his right side , cant try to sit up, and cant stand up alone. He denies any saddle anesthesia , incontinence, fever, chills, blurred, diplopia, sore throat, ear ache, CP, SOB , abdominal pain, neck pain, hematuria, hematochezia, rash, bruising, or headache. - History of Current Complaint Chief Complaint: EDBackInjuryPain Stated Complaint: BACK PAIN Hx Obtained From: Patient Onset/Duration: Sudden Onset, Still Present Onset/Duration: Started Days Ago - 3 Timing: Constant Back Pain Location: Is Discrete @ - Right back, Radiates To - Right leg Severity Currently: Severe Pain Intensity: 9 Pain Scale Used: 0-10 Numeric Character: Sharp Aggravating Symptom(s): Movement, Lifting, Bending, Walking Associated Signs And Symptoms: Negative: Weakness, Numbness, Tingling, Abdominal Pain, Bladder Incontinence, Bowel Incontinence - Allergies/Home Medications Allergies/Adverse Reactions: Allergies Allergy/AdvReac Type Severity Reaction Status Date / Time No Known Allergies Allergy Verified 05/19/18 16:27 PMH/Surg Hx/FS Hx/Imm Hx Endocrine/Hematology History: Denies: Hx Diabetes, Hx Thyroid Disease Cardiovascular History: Denies: Hx Hypertension, Hx Pacemaker/ICD Respiratory History: Reports: Hx Asthma, Hx Pneumonia Denies: Hx Chronic Obstructive Pulmonary Disease (COPD) GI History: Denies: Hx Ulcer Sensory History: Denies: Hx Contacts or Glasses Opthamlomology History: Denies: Hx Contacts or Glasses Neurological History: Denies: Other Neuro Impairments/Disorders Psychiatric History: Denies: Hx Panic Disorder - Surgical History Surgery Procedure, Year, and Place: ABD SURGERY- HERNIA 2012 - [facility] [place] Infectious Disease History: No Infectious Disease History: Denies: Hx Hepatitis, Hx Human Immunodeficiency Virus (HIV), History Other Infectious Disease, Traveled Outside the [place] in Last 30 Days - Family History Known Family History: Positive: Respiratory Disease - Asthma, Other - depression - Social History Alcohol Use: None Alcohol Amount: past hx ETOH overuse Hx Substance Use: No Substance Use Type: Reports: Marijuana Substance Use Comment - Amount & Last Used: meth-"rarely" Hx Tobacco Use: Yes Smoking Status (MU): Former Smoker Type: Cigarettes Amount Used/How Often: 6 cig./day QUIT 2 YEARS AGO Review of Systems Negative: Fever, Chills Negative: Blurred Vision, Diplopia Negative: Sore Throat, Ear Ache Negative: Chest Pain Negative: Shortness Of Breath Negative: Abdominal Pain, Other - Hematochezia Negative: hematuria, incontinence Positive: Myalgia - Back pain radiating down right leg, Other - NEGATIVE: neck pain Negative: Rash, Bruising Negative: Headache, Numbness - Saddle anesthesia All Other Systems Reviewed And Are Negative: No Physical Exam - Summary Physical Exam Summary: Appearance: Alert, conversive, nontoxic appearing, slow to move Skin: Warm, dry, no mottling, no rashes, no contusions HEENT: EOMI, PERRL, moist mucous membranes Neck: No masses on the neck, supple Respiratory: Clear to auscultation, breath sounds present, no rales, no rhonchi , no wheezes Cardiovascular: RRR, pulses are symmetrical in both lower and upper extremities Abdomen: Soft, tenderness to lower right lumbar region, no midline tenderness Bowel Sounds: Present Musculoskeletal: No CVA tenderness, no obvious deformity, moving all extremities in a grossly normal manner Neurological: A&Ox3, CN II-XII Intact, moving all extremities symmetrically Psychiatric: Normal affect and mood Triage Information Reviewed: Yes Vital Signs On Initial Exam: Initial Vitals Temp Pulse Resp BP Pulse Ox 98.3 F 65 18 154/138 97 06/05/18 14:24 06/05/18 14:24 06/05/18 14:24 06/05/18 14:24 06/05/18 14:24 Vital Signs Reviewed: Yes Diagnostics - Vital Signs Vital Signs Temp Pulse Resp BP Pulse Ox 06/05/18 14:24 98.3 F 65 18 154/138 97 - Laboratory Lab Statement: Any lab studies that have been ordered have been reviewed, and results considered in the medical decision making process. Back Pain Course/Dx - Course Course Of Treatment: Pt is a 32 y/o male who presents to the ED c/o back pain. He states 3 days ago he twisted his back the wrong way, and since then hes been having sharp pain radiating down his right leg. Pt states he cant put pressure on his right side, cant try to sit up, and cant stand up alone. He denies any saddle anesthesia, incontinence, fever, chills, blurred, diplopia, sore throat, ear ache, CP, SOB, abdominal pain, neck pain, hematuria, hematochezia, rash, bruising, or headache. A physical exam revealed tenderness to lower right lumbar region, no midline tenderness, and slow to move. Final dx is sciatic nerve pain. Pt will be discharged and is agreeable with this plan. - Diagnoses Provider Diagnoses: Sciatic nerve pain Discharge - Sign-Out/Discharge Documenting (check all that apply): Patient Departure - Discharge - Discharge Plan Condition: Stable Disposition: HOME Prescriptions: Cyclobenzaprine TAB* [Flexeril 10 MG TAB*] 10 mg PO TID PRN #15 tab MDD 3 PRN Reason: Pain predniSONE TAB* [Deltasone 20 MG TAB*] 60 mg PO DAILY #12 tab MDD 3 Patient Education Materials: Sciatica (ED) Forms: *Work Release Referrals: [facility] [place] PHYSICIAN REFERRAL [Outside] - 3 Days Additional Instructions: Take the prednisone, motrin, tylenol, and flexeril as instructed. return if worse or any new symptoms. Take all other medications as previously instructed. Please follow up with your primary care physician by Sunday. Avoid any heavy lifting or straining your back. - Attestation Statements Document Initiated by Scribe: Yes Documenting Scribe: Meenakshi Mcclellan Provider For Whom Scribe is Documenting (Include Credential): Arlene Thornton MD Scribe Attestation: Meenakshi Younger, scribed for Arlene Thornton MD on 06/05/18 at 1724.
[2018-06-05 18:34] VITALS: BP 115/79
== END 2018-06-05 18:33 | disposition home or self-care (01) ==
LOC: ED 13:54
DX: M54.31 Sciatica, right side (principal); Z87.891 Personal history of nicotine dependence
CPT/HCPCS: 96372; 99282; A9270-GY; J1885; J7512

== ENCOUNTER → 2018-08-05 12:39 | Emergency (ER) | payer BC, OTHER ==
[2018-08-05 13:11] VITALS: BP 121/73
== END | disposition left against medical advice (07) ==
LOC: ED 12:39
DX: S61.411A Laceration without foreign body of right hand, initial encounter (principal); X58.XXXA Exposure to other specified factors, initial encounter; Y92.9 Unspecified place or not applicable; Z53.21 Procedure and treatment not carried out due to patient leaving prior to being seen by health care provider

== ENCOUNTER 2018-08-05 17:22 | Emergency (ER) | payer BC, OTHER ==
[2018-08-05 17:56] VITALS: BP 152/85
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
== END 2018-08-05 20:20 | disposition home or self-care (01) ==
LOC: UCEAST 17:22
DX: S61.411D Laceration without foreign body of right hand, subsequent encounter (principal); Z87.891 Personal history of nicotine dependence; X58.XXXD Exposure to other specified factors, subsequent encounter
CPT/HCPCS: 99212; G0463

== ENCOUNTER 2018-08-26 19:17 | Emergency (ER) | payer OTHER ==
[2018-08-26 19:31] VITALS: BP 124/86
[2018-08-26] MEDS ORDERED: Ondansetron ODT TAB* 4 MG PO ONE (19:37)
--- NOTE | 2018-08-26 19:41 | UC ---
Nausea/Vomiting/Diarrhea HPI - HPI Summary HPI Summary: 32 year old male presents with nausea, vomiting, and diarrhea for the past day. he has two episodes of diarrhea. He admits to epigastric abdominal pain. He also admits to a cough. He denies any fever. He denies any one else being sick or eating anything different. no medical conditions. did not try anything. he also admits to a headache. - History of Current Complaint Chief Complaint: UCGeneralIllness Stated Complaint: HEADACHE,ABD PAIN Time Seen by Provider: 08/26/18 19:27 Pain Intensity: 0 - Allergies/Home Medications Allergies/Adverse Reactions: Allergies Allergy/AdvReac Type Severity Reaction Status Date / Time No Known Allergies Allergy Verified 08/05/18 17:56 PMH/Surg Hx/FS Hx/Imm Hx Endocrine History: Other - no DM Cardiovascular History: Other - no HTN - Surgical History Surgical History: Yes Surgery Procedure, Year, and Place: ABD SURGERY- HERNIA 2011 - [facility] - Family History Known Family History: Positive: None, Respiratory Disease - Asthma, Other - depression - Social History Alcohol Use: None Alcohol Amount: past hx ETOH overuse Substance Use Type: Marijuana Substance Use Comment - Amount & Last Used: once in awhile Smoking Status (MU): Former Smoker Type: Cigarettes Amount Used/How Often: 6 cig./day QUIT 2 YEARS AGO When Did the Patient Quit Smoking/Using Tobacco: 2014 Household Exposure Type: Cigarettes Review of Systems All Other Systems Reviewed And Are Negative: Yes Constitutional: Negative: Fever ENT: Negative: Sinus Congestion Respiratory: Positive: Cough Gastrointestinal: Positive: Abdominal Pain, Vomiting, Diarrhea, Nausea Neurological: Positive: Headache Physical Exam Triage Information Reviewed: Yes Appearance: Well-Appearing Vital Signs: Initial Vital Signs Temp 99.5 F 08/26/18 19:25 Pulse 120 08/26/18 19:25 Resp 14 08/26/18 19:25 BP 124/86 08/26/18 19:25 Pulse Ox 96 08/26/18 19:25 Vital Signs Reviewed: Yes Eyes: Positive: Conjunctiva Clear ENT: Positive: Normal ENT inspection, Pharynx normal, TMs normal Respiratory: Positive: Lungs clear, Normal breath sounds Cardiovascular: Positive: RRR Abdomen Description: Positive: Soft, Other: - mild diffuse tenderness Bowel Sounds: Positive: Present Musculoskeletal Exam: Normal Neurological Exam: Normal Psychological Exam: Normal Skin Exam: Normal Re-Evaluation - Re-Evaluation First Eval Re-Evaluation Time: 20:01 Change: Improved Comment: feeling better, able to tolerate water Naus/Vom/Diarrhea Course/Dx - Course Course Of Treatment: 32 year old male presents with n/v/d and epigastric pain for the past day. no fever. on exam mild generalized abdominal pain. patient declined flu testing. also declined IV fluids as is tachycardia wants to see if can tolerate them orally. gave zofran and patient able to tolerate liquids. will discharge with zofran patient requesting oral and not odt. patient understand and agrees with plan. - Differential Dx/Diagnosis Differential Diagnoses - Male: Gastroenteritis (Viral), Gastroenteritis ( Bacterial), Cystitis Provider Diagnoses: abdominal pain, nausea, vomiting, diarrhea Condition At Discharge: Good Discharge - Sign-Out/Discharge Documenting (check all that apply): Patient Departure All imaging exams completed and their final reports reviewed: No Studies - Discharge Plan Condition: Good Disposition: HOME Prescriptions: Ondansetron TAB* [Zofran 4 MG Tab*] 4 mg PO Q6H PRN #16 tab PRN Reason: Nausea Patient Education Materials: Acute Nausea and Vomiting (ED) Forms: *Gen. Provider Communication Referrals: [facility]YS[facility]IAN REFERR[facility] [Outside] Additional Instructions: Can take Zofran every 6 hours as needed for nausea Drink small amounts of fluid as tolerated When able to eat follow BRAT diet: Bananas, rice, applesauce, toast Take ibuprofen or Tylenol for pain as needed every 6 hours establish care with primary Return to ED if develop fever that does not respond to Tylenol or ibuprofen, severe abdominal pain, or any new or worsening symptoms - Billing Disposition and Condition Condition: GOOD Disposition: Home
== END 2018-08-26 20:05 | disposition home or self-care (01) ==
LOC: UCEAST 19:17
DX: R10.13 Epigastric pain (principal); R12 Heartburn; R19.7 Diarrhea, unspecified
CPT/HCPCS: 99212; A9270-GY; G0463

== ENCOUNTER 2018-11-25 10:46 | Emergency (ER) | payer MEDICAID, OTHER ==
[2018-11-25] MEDS ORDERED: Metoclopramide IV* 5 MG/ML 2 ML VIAL IV ONE (12:31)
[2018-11-25] MEDS ORDERED: DiMENhydriNATE IV* 50 MG/ML VIAL IV PUSH ONE (12:31)
[2018-11-25] MEDS ORDERED: Ketorolac INJ* 30 MG/ML 1 ML VIAL IV PUSH ONE (12:31)
[2018-11-25] MEDS ORDERED: NS 0.9% 1000 ML** 1,000 ML IV ONE (12:31)
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
[2018-11-25] MEDS ORDERED: Morphine VIAL* 4 MG/ML VIAL (1 ml vial) IV ONE (13:38)
[2018-11-25 14:55] VITALS: BP 131/87
== END 2018-11-25 14:59 ==
LOC: ED 10:46
DX: R51 Headache (principal); R42 Dizziness and giddiness; H53.149 Visual discomfort, unspecified; F10.11 Alcohol abuse, in remission; Z87.891 Personal history of nicotine dependence
CPT/HCPCS: 70450; 96374; 96375; 99283; J1240; J1885; J2270; J2765

== ENCOUNTER 2018-12-20 09:46 | Emergency (ER) | payer OTHER ==
[2018-12-20 11:20] VITALS: BP 110/59
--- NOTE | 2018-12-20 13:42 | ED ---
Throat Pain/Nasal Congestion - HPI Summary HPI Summary: Patient is a 32-year-old male to the ED with erythema and pain just above tooth #14. He has had this symptom in the past and it has worsened and developed into an abscess. He is here requesting antibiotics. He is endorsing a 2/10 pain, constant and aching. Denies any difficulty with chewing, odynophagia or dysphagia. Denies any radiation of pain. Denies any fevers, sweats, chills or headache. He has not taken any medication [id number] for relief. He has several dental caries, gingivitis and broken teeth throughout. He has been unable to see a dentist. - History of Current Complaint Chief Complaint: EDDentalPain Time Seen by Provider: 12/20/18 10:03 Hx Obtained From: Patient Onset/Duration: Sudden Onset Severity: Moderate Associated Signs And Symptoms: Positive: Negative - Epiglottits Risk Factors Epiglottis Risk Factors: Negative - Allergies/Home Medications Allergies/Adverse Reactions: Allergies Allergy/AdvReac Type Severity Reaction Status Date / Time No Known Allergies Allergy Verified 12/20/18 10:01 PMH/Surg Hx/FS Hx/Imm Hx Previously Healthy: Yes Endocrine/Hematology History: Denies: Hx Diabetes, Hx Thyroid Disease Cardiovascular History: Denies: Hx Hypertension, Hx Pacemaker/ICD Respiratory History: Reports: Hx Asthma, Hx Pneumonia Denies: Hx Chronic Obstructive Pulmonary Disease (COPD) GI History: Denies: Hx Ulcer Sensory History: Denies: Hx Contacts or Glasses Opthamlomology History: Denies: Hx Contacts or Glasses Neurological History: Denies: Other Neuro Impairments/Disorders Psychiatric History: Denies: Hx Panic Disorder - Surgical History Surgery Procedure, Year, and Place: ABD SURGERY- HERNIA 2012 - [facility] – [place] - Immunization History Hx Pertussis Vaccination: No Immunizations Up to Date: Yes Infectious Disease History: No Infectious Disease History: Denies: Hx Hepatitis, Hx Human Immunodeficiency Virus (HIV), History Other Infectious Disease, Traveled Outside the [place] in Last 30 Days - Family History Known Family History: Positive: Respiratory Disease - Asthma, Other - depression - Social History Occupation: Unemployed Lives: With Family Alcohol Use: None Alcohol Amount: hx ETOH abuse, pt in [facility] Hx Substance Use: No Substance Use Type: Reports: None Substance Use Comment - Amount & Last Used: once in awhile Hx Tobacco Use: Yes Smoking Status (MU): Former Smoker Type: Cigarettes Amount Used/How Often: 6 cig./day QUIT 2 YEARS AGO Review of Systems Constitutional: Negative Negative: Fever, Chills, Fatigue, Skin Diaphoresis Positive: Dental Pain. Negative: Sore Throat, Ear Ache Negative: Palpitations, Chest Pain Negative: Shortness Of Breath Genitourinary: Negative Positive: no symptoms reported, see HPI Negative: Arthralgia, Myalgia Negative: Rash, Bruising Neurological: Negative All Other Systems Reviewed And Are Negative: Yes Physical Exam Triage Information Reviewed: Yes Vital Signs On Initial Exam: Initial Vitals Temp Pulse Resp BP Pulse Ox 98.3 F 101 16 138/81 98 12/20/18 09:59 12/20/18 09:59 12/20/18 09:59 12/20/18 09:59 12/20/18 09:59 Vital Signs Reviewed: Yes Appearance: Positive: Well-Appearing, Well-Nourished Skin: Positive: Warm, Skin Color Reflects Adequate Perfusion Head/Face: Positive: Normal Head/Face Inspection Eyes: Positive: EOMI, INES, Conjunctiva Clear Neck: Positive: No Lymphadenopathy Respiratory/Lung Sounds: Positive: Clear to Auscultation, Breath Sounds Present Cardiovascular: Positive: RRR, Pulses are Symmetrical in both Upper and Lower Extremities Musculoskeletal: Positive: Normal, Strength/ROM Intact Neurological: Positive: Alert, Oriented to Person Place, Time, Speech Normal Psychiatric: Positive: Normal, Affect/Mood Appropriate AVPU Assessment: Alert Diagnostics - Vital Signs Vital Signs Temp Pulse Resp BP Pulse Ox 12/20/18 11:19 98 F 82 16 110/59 97 12/20/18 09:59 98.3 F 101 16 138/81 98 - Laboratory Lab Statement: Any lab studies that have been ordered have been reviewed, and results considered in the medical decision making process. EENT Course/Dx - Course Course Of Treatment: During this course of treatment, the patient is evaluated for left upper gum swelling, erythema and pain over tooth #14. He states he has had this in the past in the same area. He states typically the area will swell and he is able to drain purulent discharge from this area without needing to come to the ED. However he states the area has not swelled up and off to allow him to drain this area. For this reason, he came to the ED requesting antibiotics. He endorses pain 2/10. I have given the patient Keflex as well as magic mouthwash. Patient will follow-up with dentist for further workup. - Differential Diagnoses Differential Diagnoses: Dental Abscess, Dental Caries, Other - Dental caries, dental abscess - Diagnoses Provider Diagnoses: Pain, dental Discharge - Sign-Out/Discharge Documenting (check all that apply): Patient Departure Patient Received Moderate/Deep Sedation with Procedure: No - Discharge Plan Condition: Stable Disposition: HOME Prescriptions: Cephalexin CAP* [Keflex CAP*] 500 mg PO TID #15 cap MDD 3 Magic Mouth Was-NICOLE/MAAL/LIDO* 5 ml SWISH SPIT QID #60 ml Referrals: No Primary Care Phys,NOPCP [Primary Care Provider] - Additional Instructions: You have been diagnosed with mouth infection You have been given antibiotics Keflex three times daily 5 days Magic mouthwash 4 times daily - Billing Disposition and Condition Condition: STABLE Disposition: Home
== END 2018-12-20 11:19 | disposition home or self-care (01) ==
LOC: ED 09:46
DX: K08.89 Other specified disorders of teeth and supporting structures (principal); Z87.891 Personal history of nicotine dependence
CPT/HCPCS: 99282

== ENCOUNTER 2019-02-13 11:38 | Emergency (ER) | payer MEDICAID ==
--- NOTE | 2019-02-13 11:50 | UC ---
Abdominal Pain Male HPI - HPI Summary HPI Summary: 33 yo male presents with vomiting and upper abdominal pain. He tells me that 2 days ago he developed spontaneously upper abdominal pain and had 3 episodes of vomiting. Two of those episodes had "maroon" colored emesis that pt states was "bloody". Yesterday he vomited once and, again, had maroon colored emesis. Today has not vomited. He is very nauseous and is still having upper abdominal pain. He states his pain feels a little better when he eats, but he doesn't want to eat due to nausea. He denies recent illness or trauma to abdomen. Denies diarrhea, constipation, or blood/dark stools. No dysuria. PMHx positive for IVDA - but pt states he is currently not using due to drug court. Past notes indicate hx of alcohol abuse, but pt states none. - History of Current Complaint Chief Complaint: UCAbdominalPain Stated Complaint: VOMITING BLOOD AND BLOOD IN STOOL Time Seen by Provider: 02/13/19 11:47 Hx Obtained From: Patient Onset/Duration: Sudden Onset Severity Initially: Mild Severity Currently: Mild Pain Intensity: 3 Pain Scale Used: 0-10 Numeric - Allergies/Home Medications Allergies/Adverse Reactions: Allergies Allergy/AdvReac Type Severity Reaction Status Date / Time narcotics Allergy involved Uncoded 02/13/19 11:[address] Home Medications: Home Medications NK [No Home Medications Reported] 02/13/19 [History Confirmed 02/13/19] PMH/Surg Hx/FS Hx/Imm Hx - Additional Past Medical History Additional PMH: IV drug user - Surgical History Surgical History: Yes Surgery Procedure, Year, and Place: ABD SURGERY- HERNIA 2011 - [facility] – [place] - Family History Known Family History: Positive: Respiratory Disease - Asthma, Other - depression - Social History Alcohol Use: None Alcohol Amount: hx ETOH abuse, pt in [facility] Substance Use Type: None Substance Use Comment - Amount & Last Used: once in awhile/states involved with drug court Smoking Status (MU): Current Some Day Smoker Type: Cigarettes Amount Used/How Often: 6 cig./day QUIT 2 YEARS AGO When Did the Patient Quit Smoking/Using Tobacco: 2014 Household Exposure Type: Cigarettes Review of Systems All Other Systems Reviewed And Are Negative: Yes Constitutional: Positive: Negative Skin: Positive: Negative Respiratory: Positive: Negative Cardiovascular: Positive: Negative Gastrointestinal: Positive: Abdominal Pain, Vomiting Genitourinary: Positive: Negative Neurovascular: Positive: Negative Neurological: Positive: Negative Psychological: Positive: Negative Physical Exam - Summary Physical Exam Summary: GENERAL: NAD. WDWN. No pain distress. SKIN: No rashes, sores, lesions, or open wounds. NECK: Supple. Nontender. No lymphadenopathy. CHEST: CTAB. No r/r/w. No accessory muscle use. Breathing comfortably and in no distress. CV: RRR. Without m/r/g. Pulses intact. Cap refill <2seconds ABDOMEN: Mild TTP epigastrum. Soft. No distention or guarding. No CVA tenderness. Bowel sounds present. No ecchymosis NEURO: Alert. PSYCH: Age appropriate behavior. Triage Information Reviewed: Yes Vital Signs: Initial Vital Signs Temp 98 F 02/13/19 11:47 Pulse 110 02/13/19 11:47 Resp 20 02/13/19 11:47 BP 146/97 02/13/19 11:47 Pulse Ox 99 02/13/19 11:47 Vital Signs Reviewed: Yes Abd Pain Male Course/Dx - Course Course Of Treatment: In the clinic pt was given zofran for his nausea. XR abdomen: IMPRESSION: NONOBSTRUCTIVE BOWEL GAS PATTERN. I suspect pt has a gastric ulcer vs esophageal varices if this truly is hematemesis. Unfortunately in the we are unable to obtain same day labwork. Given that I am unable to determine pt's H+H, liver enzymes, and confirm suspicion of ulcer - I recommended pt be further evaluated in the ED. He was agreeable to this and he will take a cab. - Differential Dx/Clinical Impression Provider Diagnosis: Hematemesis Discharge - Sign-Out/Discharge Documenting (check all that apply): Patient Departure All imaging exams completed and their final reports reviewed: Yes - Discharge Plan Condition: Stable Disposition: HOME-RECOMMEND TO ED Referrals: No Primary Care Phys,NOPCP [Primary Care Provider] - Additional Instructions: Please go to the ER for further evaluation of your vomiting blood - Billing Disposition and Condition Condition: STABLE Disposition: Home-Recommend to ED
[2019-02-13 11:56] VITALS: BP 146/97
[2019-02-13] MEDS ORDERED: Ondansetron ODT TAB* 4 MG SL ONE (11:59)
== END 2019-02-13 12:42 | disposition home health service (06) ==
LOC: UCEAST 11:38
DX: K92.0 Hematemesis (principal); R10.10 Upper abdominal pain, unspecified; Z88.5 Allergy status to narcotic agent; Z87.891 Personal history of nicotine dependence
CPT/HCPCS: 74019; 99212; A9270-GY; G0463

== ENCOUNTER 2019-02-18 12:33 | Emergency (ER) | payer MEDICAID ==
--- NOTE | 2019-02-18 12:52 | ED ---
Influenza-Like Illness - HPI Summary HPI Summary: Pt is a 33 y/o M presenting to the ED with a chief complaint of a flu-like illness first onset a couple of days ago. He reports chills, lightheadedness, N/ V/D, and decreased oral intake. He denies sore throat, ear ache, rhinorrhea, or being around anyone else whos been sick. - History of Current Complaint Chief Complaint: EDFluSymptoms Time Seen by Provider: 02/18/19 12:46 Hx Obtained From: Patient Onset/Duration: Gradual Onset, Lasting Days, Still Present Severity: Moderate Associated Signs & Symptoms: Vomiting, Diarrhea - Allergy/Home Medications Allergies/Adverse Reactions: Allergies Allergy/AdvReac Type Severity Reaction Status Date / Time narcotics AdvReac See Comment Uncoded 02/18/19 12:38 PMH/Surg Hx/FS Hx/Imm Hx Previously Healthy: Yes Endocrine/Hematology History: Denies: Hx Diabetes, Hx Thyroid Disease Cardiovascular History: Denies: Hx Hypertension, Hx Pacemaker/ICD Respiratory History: Reports: Hx Asthma, Hx Pneumonia Denies: Hx Chronic Obstructive Pulmonary Disease (COPD) GI History: Denies: Hx Ulcer Sensory History: Denies: Hx Contacts or Glasses Opthamlomology History: Denies: Hx Contacts or Glasses Neurological History: Denies: Other Neuro Impairments/Disorders Psychiatric History: Denies: Hx Panic Disorder - Surgical History Surgery Procedure, Year, and Place: ABD SURGERY- HERNIA [address] [facility] [place] Infectious Disease History: No Infectious Disease History: Denies: Hx Hepatitis, Hx Human Immunodeficiency Virus (HIV), History Other Infectious Disease, Traveled Outside the [place] in Last 30 Days - Family History Known Family History: Positive: Respiratory Disease - Asthma, Other - depression - Social History Alcohol Use: None Alcohol Amount: hx ETOH abuse, pt in [facility] Hx Substance Use: No Substance Use Type: Reports: None Substance Use Comment - Amount & Last Used: once in awhile Hx Tobacco Use: Yes Smoking Status (MU): Former Smoker Type: Cigarettes Amount Used/How Often: 6 cig./day QUIT 2 YEARS AGO Review of Systems Positive: Chills, Other - decreased oral intake Negative: Sore Throat, Nasal Discharge Positive: Vomiting, Diarrhea, Nausea Neurological: Other - lightheaded All Other Systems Reviewed And Are Negative: Yes Physical Exam - Summary Physical Exam Summary: Appearance: The patient is well-nourished in no acute distress and in no acute pain. Skin: The skin is warm and dry and skin color reflects adequate perfusion. HEENT: The head is normocephalic and atraumatic. The pupils are equal and reactive. The conjunctivae are clear and without drainage. Nares are patent and without drainage. Mouth reveals dry mucous membranes and the throat is without erythema and exudate. The external ears are intact. The ear canals are patent and without drainage. The tympanic membranes are intact. Neck: The neck is supple with full range of motion and non-tender. There are no carotid bruits. There is no neck vein distension. Respiratory: Chest is non-tender. Lungs are clear to auscultation and breath sounds are symmetrical and equal. Cardiovascular: Heart is regular rate and rhythm. There is no murmur or rub auscultated. There is no peripheral edema and pulses are symmetrical and equal. Abdomen: The abdomen is soft and non-tender. There are normal bowel sounds heard in all four quadrants and there is no organomegaly palpated. Musculoskeletal: There is no back tenderness noted. Extremities are non-tender with full range of motion. There is good capillary refill. There is no peripheral edema or calf tenderness elicited. Neurological: Patient is alert and oriented to person, place and time. The patient has symmetrical motor strength in all four extremities. Cranial nerves are grossly intact. Deep tendon reflexes are symmetrical and equal in all four extremities. Psychiatric: The patient has an appropriate affect and does not exhibit any anxiety or depression. Triage Information Reviewed: Yes Vital Signs On Initial Exam: Initial Vitals Temp Pulse Resp BP Pulse Ox 98.2 F 103 16 140/94 96 02/18/19 12:35 02/18/19 12:35 02/18/19 12:35 02/18/19 12:35 02/18/19 12:35 Vital Signs Reviewed: Yes Diagnostics - Vital Signs Vital Signs Temp Pulse Resp BP Pulse Ox 02/18/19 12:35 98.2 F 103 16 140/94 96 - Laboratory Result Diagrams: 02/18/19 13:24 02/18/19 13:24 Lab Statement: Any lab studies that have been ordered have been reviewed, and results considered in the medical decision making process. Flu Symptom Course/Dx - Course Course Of Treatment: Mr. Mcnair presented with a couple days of nausea, vomiting & diarrhea. He has no abdominal pain. He was nontoxic in appearance with stable vital signs. An IV was established she was given IV fluids as well as Zofran. He slept for a while and labs neuro no acute abnormality. He was discharged home in improved condition - Diagnoses Provider Diagnoses: Gastroenteritis Discharge - Sign-Out/Discharge Documenting (check all that apply): Patient Departure Patient Received Moderate/Deep Sedation with Procedure: No - Discharge Plan Condition: Stable Disposition: HOME Prescriptions: Ondansetron ODT TAB* [Zofran Odt TAB*] 4 mg PO Q6H PRN #20 tab.odt PRN Reason: Nausea/Vomiting Referrals: [facility] [Outside] Additional Instructions: Please take your prescribed medications as instructed. Follow up with your primary care provider within the next 2-3 days. Return to the emergency department with any new or worsening symptoms. - Billing Disposition and Condition Condition: STABLE Disposition: Home - Attestation Statements Document Initiated by Charlesibe: Yes Documenting Scribe: Keyanna Ramos Provider For Whom Dane is Documenting (Include Credential): Angel Cheung MD. Scribe Attestation: Keyanna Younger scribed for Angel Cheung MD. on 02/18/19 at 1743. Scribe Documentation Reviewed: Yes Provider Attestation: The documentation as recorded by the Keyanna garcia accurately reflects the service I personally performed and the decisions made by , Angel Cheung MD. Status of Scribe Document: Viewed
[2019-02-18] MEDS ORDERED: NS 0.9% 1000 ML** 1,000 ML IV ONE (12:55)
[2019-02-18] MEDS ORDERED: Ondansetron INJ* 2 MG/ML VIAL IV ONE (12:55)
[2019-02-18 13:31] LABS: ABS Basophils 0.1 10^3/ul (0-0.2); ABS Eosinophils 0.1 10^3/ul (0-0.6); ABS Monocytes 0.7 10^3/ul (0-0.8); ABS Neutrophils 4.6 10^3/ul (1.5-7.7); Eosinophil % 1.9 %; Hematocrit 43 % (42-52); Hemoglobin 14.7 g/dL (14.0-18.0); Lymphocyte % 27.2 %; Mean Corpuscular HGB Conc 34 g/dL (31-36); Mean Corpuscular Hemoglobin 29 pg (27-31); Mean Corpuscular Volume 84 fL (80-94); Mean Platelet Volume 7.4 fL (7.4-10.4); Nucleated Red Blood Cells % 0.1; Platelet Count 282 10^3/uL (150-450); Red Blood Count 5.14 10^6 /uL (4.18-5.48); Red Cell Distribution Width 13 % (10.5-15); White Blood Count 7.5 10^3/uL (3.5-10.8)
[2019-02-18 14:03] LABS: Albumin 4.1 g/dL (3.2-5.2); Albumin/Globulin Ratio 1.5 (1-3); BUN/Creatinine Ratio 18.4 (8-20); C Reactive Protein 4.58 mg/L (<8.01); Calcium 9.3 mg/dL (8.6-10.3); EGFR African American 122.3 (>60); EGFR Non-African American 101.1 (>60); Globulin 2.7 g/dL (2-4); Potassium 3.4 mmol/L (3.5-5.0); Total Bilirubin 0.5 mg/dL (0.2-1.0); Total Protein 6.8 g/dL (6.4-8.9)
[2019-02-18 15:12] VITALS: BP 136/82
== END 2019-02-18 15:12 | disposition home or self-care (01) ==
LOC: ED 12:33
DX: K52.9 Noninfective gastroenteritis and colitis, unspecified (principal); R11.10 Vomiting, unspecified; R19.7 Diarrhea, unspecified; Z87.891 Personal history of nicotine dependence
CPT/HCPCS: 36415; 80053; 83605; 85025; 86140; 96361; 96374; 99283; J2405

== ENCOUNTER 2019-03-01 08:30 | Emergency (ER) | payer MEDICAID ==
[2019-03-01] MEDS ORDERED: Ondansetron INJ* 2 MG/ML VIAL IV ONE (10:03)
[2019-03-01] MEDS ORDERED: NS 0.9% 1000 ML** 1,000 ML IV ONE (10:03)
[2019-03-01 10:24] LABS: ABS Eosinophils 0.1 10^3/ul (0-0.6); ABS Lymphocytes 1.2 10^3/ul (1.0-4.8); ABS Monocytes 0.8 10^3/ul (0-0.8); ABS Neutrophils 4.7 10^3/ul (1.5-7.7); Eosinophil % 0.9 %; Hematocrit 42 % (42-52); Hemoglobin 14.1 g/dL (14.0-18.0); Lymphocyte % 18.2 %; Mean Corpuscular HGB Conc 34 g/dL (31-36); Mean Corpuscular Hemoglobin 29 pg (27-31); Mean Corpuscular Volume 85 fL (80-94); Mean Platelet Volume 7.2 fL (7.4-10.4); Nucleated Red Blood Cells % 0.2; Platelet Count 256 10^3/uL (150-450); Red Blood Count 4.93 10^6 /uL (4.18-5.48); Red Cell Distribution Width 13 % (10.5-15); White Blood Count 6.9 10^3/uL (3.5-10.8)
[2019-03-01 10:33] LABS: Albumin 3.9 g/dL (3.2-5.2); Albumin/Globulin Ratio 1.3 (1-3); BUN/Creatinine Ratio 10.8 (8-20); C Reactive Protein 28.83 mg/L (<8.01); EGFR African American 129.1 (>60); EGFR Non-African American 106.7 (>60); Globulin 2.9 g/dL (2-4); Potassium 3.6 mmol/L (3.5-5.0); Total Bilirubin 0.6 mg/dL (0.2-1.0); Total Protein 6.8 g/dL (6.4-8.9)
[2019-03-01] MEDS ORDERED: Albuterol HFA INHALER* 8 gm MDI INH ONE (10:54)
[2019-03-01 11:24] VITALS: BP 126/72
--- NOTE | 2019-03-01 11:39 | ED ---
Respiratory - HPI Summary HPI Summary: Patient is a 33-year-old male presenting to the ED with flulike symptoms. He endorses cough, congestion, headache, rhinorrhea, bilateral ear pain, shortness of breath without chest pain which has been worsening over the past 5 days. He states he recently had a diagnosis of the flu a few weeks ago however he continues to have a cough. He denies any fevers, however is endorsing intermittent sweats and chills. Denies any urinary symptoms, abdominal pain or back pain. Patient is a smoker. - History of Current Complaint Chief Complaint: EDFluSymptoms Stated Complaint: FLU LIKE SYMPTOMS/POSS EAR INFECTION PER PT Time Seen by Provider: 03/01/19 08:40 Hx Obtained From: Patient Onset/Duration: Sudden Onset Timing: Constant Initial Severity: Moderate Current Severity: Moderate Pain Intensity: 0 Character: Wheezing, Cough (Productive) Sputum Amount: None Sputum Color: Clear Aggravating Factor(s): URI Associated Signs and Symptoms: SOB, URI, Nasal Congestion - Risk Factors Status Asthmaticus Risk Factors: Negative Pulmonary Embolism Risk Factors: Negative Cardiac Risk Factors: Negative Pseudomonas Risk Factors: Negative Tuberculosis Risk Factors: Negative - Allergy/Home Medications Allergies/Adverse Reactions: Allergies Allergy/AdvReac Type Severity Reaction Status Date / Time narcotics AdvReac See Comment Uncoded 02/18/19 12:38 Home Medications: Home Medications Acetaminophen [Tylenol Extra Strength] 1,000 - 2,000 mg PO TID PRN 03/01/19 [ History Confirmed 03/01/19] PMH/Surg Hx/FS Hx/Imm Hx Previously Healthy: Yes Endocrine/Hematology History: Denies: Hx Diabetes, Hx Thyroid Disease Cardiovascular History: Denies: Hx Hypertension, Hx Pacemaker/ICD Respiratory History: Reports: Hx Asthma, Hx Pneumonia Denies: Hx Chronic Obstructive Pulmonary Disease (COPD) GI History: Denies: Hx Ulcer Sensory History: Denies: Hx Contacts or Glasses Opthamlomology History: Denies: Hx Contacts or Glasses Neurological History: Denies: Other Neuro Impairments/Disorders Psychiatric History: Denies: Hx Panic Disorder - Surgical History Surgery Procedure, Year, and Place: ABD SURGERY- [facility]ERNIA 2012 - [facility] [place] - Immunization History Hx Pertussis Vaccination: No Immunizations Up to Date: Yes Infectious Disease History: No Infectious Disease History: Denies: Hx Hepatitis, Hx Human Immunodeficiency Virus (HIV), History Other Infectious Disease, Traveled Outside the [place] in Last 30 Days - Family History Known Family History: Positive: Respiratory Disease - Asthma, Other - depression - Social History Occupation: Employed Full-time Alcohol Use: None Alcohol Amount: hx ETOH abuse, pt in [facility] Hx Substance Use: No Substance Use Type: Reports: None Substance Use Comment - Amount & Last Used: once in awhile Hx Tobacco Use: Yes Smoking Status (MU): Light Every Day Tobacco Smoker Type: Cigarettes Amount Used/How Often: 6 cig./day QUIT 2 YEARS AGO Review of Systems Constitutional: Negative Negative: Fever, Chills, Fatigue, Skin Diaphoresis Negative: Palpitations, Chest Pain Positive: Shortness Of Breath, Cough Genitourinary: Negative Positive: no symptoms reported, see HPI Negative: Arthralgia, Myalgia Psychological: Normal All Other Systems Reviewed And Are Negative: Yes Physical Exam Triage Information Reviewed: Yes Vital Signs On Initial Exam: Initial Vitals Temp Pulse Resp BP Pulse Ox 98.3 F 106 18 120/90 97 03/01/19 08:32 03/01/19 08:32 03/01/19 08:32 03/01/19 08:32 03/01/19 08:32 Vital Signs Reviewed: Yes Appearance: Positive: Well-Appearing, Well-Nourished Skin: Positive: Warm, Skin Color Reflects Adequate Perfusion Head/Face: Positive: Normal Head/Face Inspection Eyes: Positive: Normal, EOMI, INES, Conjunctiva Clear Neck: Positive: Supple, No Lymphadenopathy Respiratory/Lung Sounds: Positive: Rhonchi Cardiovascular: Positive: RRR, Pulses are Symmetrical in both Upper and Lower Extremities Musculoskeletal: Positive: Normal, Strength/ROM Intact Neurological: Positive: Sensory/Motor Intact, Alert, Oriented to Person Place, Time, Speech Normal Psychiatric: Positive: Affect/Mood Appropriate AVPU Assessment: Alert Diagnostics - Vital Signs Vital Signs Temp Pulse Resp BP Pulse Ox 03/01/19 11:23 98.5 F 75 16 126/72 96 03/01/19 08:32 98.3 F 106 18 120/90 97 - Laboratory Lab Results: Lab Results 03/01/19 03/01/19 Range/Units 10:11 10:11 WBC 6.9 (3.5-10.8) 10^3/uL RBC 4.93 (4.18-5.48) 10^6 /uL Hgb 14.1 (14.0-18.0) g/dL Hct 42 (42-52) % MCV 85 (80-94) fL MCH 29 (27-31) pg MCHC 34 (31-36) g/dL RDW 13 (10.5-15) % Plt Count 256 (150-450) 10^3/uL MPV 7.2 L (7.4-10.4) fL Neut % (Auto) 67.9 % Lymph % (Auto) 18.2 % [place] % (Auto) 12.4 % Eos % (Auto) 0.9 % Baso % (Auto) 0.6 % Absolute Neuts (auto) 4.7 (1.5-7.7) 10^3/ul Absolute Lymphs (auto) 1.2 (1.0-4.8) 10^3/ul Absolute Monos (auto) 0.8 (0-0.8) 10^3/ul Absolute Eos (auto) 0.1 (0-0.6) 10^3/ul Absolute Basos (auto) 0.0 (0-0.2) 10^3/ul Absolute Nucleated RBC 0.0 10^3/ul Nucleated RBC % 0.2 Sodium 137 (135-145) mmol/L Potassium 3.6 (3.5-5.0) mmol/L Chloride 106 (101-111) mmol/L Carbon Dioxide 24 (22-32) mmol/L Anion Gap 7 (2-11) mmol/L BUN 9 (6-24) mg/dL Creatinine 0.83 (0.67-1.17) mg/dL Est GFR ( Amer) 129.1 (>60) Est GFR (Non-Af Amer) 106.7 (>60) BUN/Creatinine Ratio 10.8 (8-20) Glucose 101 H (70-100) mg/dL Calcium 9.0 (8.6-10.3) mg/dL Total Bilirubin 0.60 (0.2-1.0) mg/dL AST 16 (13-39) U/L ALT 26 (7-52) U/L Alkaline Phosphatase 81 (34-104) U/L C-Reactive Protein 28.83 H (<8.01) mg/L Total Protein 6.8 (6.4-8.9) g/dL Albumin 3.9 (3.2-5.2) g/dL Globulin 2.9 (2-4) g/dL Albumin/Globulin Ratio 1.3 (1-3) Result Diagrams: 03/01/19 10:11 03/01/19 10:11 Lab Statement: Any lab studies that have been ordered have been reviewed, and results considered in the medical decision making process. Disposition - Course Course Of Treatment: Patient is evaluated for flulike symptoms. Afebrile on arrival. Other vital signs are stable. On physical examination, patient appears ill and is complaining of cough and congestion. He is endorsing some shortness of breath however he is speaking full sentences and no evidence of shortness of breath on exam. Lungs rhonchorous in the bilateral lower lobes throughout, no pharyngeal erythema, TMs normal without erythema or drainage. White count normal. CRP slightly elevated at 22. Chest x-ray obtained which shows a right basilar infiltrate. Patient is placed on azithromycin. As vital signs are all stable, he will be discharged home with the diagnosis of pneumonia. He is given an albuterol inhaler prior to discharge. - Diagnoses Provider Diagnoses: Pneumonia Discharge - Sign-Out/Discharge Documenting (check all that apply): Patient Departure Patient Received Moderate/Deep Sedation with Procedure: No - Discharge Plan Condition: Stable Disposition: HOME Prescriptions: Azithromyxin ZENON (NF) [Z-Zenon (Zithromax) 250 mg tabs #6] 2 tab PO .TODAY, THEN 1 DAILY #6 tab Patient Education Materials: Bacterial Pneumonia (ED) Forms: *Work Release Referrals: No Primary Care Phys,NOPCP [Primary Care Provider] - Additional Instructions: Take the azithromycin as prescribed Albuterol inhaler as needed for shortness of breath - Billing Disposition and Condition Condition: STABLE Disposition: Home
== END 2019-03-01 11:23 | disposition home or self-care (01) ==
LOC: ED 08:30
DX: J18.9 Pneumonia, unspecified organism (principal); R06.02 Shortness of breath; J06.9 Acute upper respiratory infection, unspecified; R09.81 Nasal congestion; F17.210 Nicotine dependence, cigarettes, uncomplicated; R05 Cough
CPT/HCPCS: 36415; 71046; 80053; 85025; 86140; 96374; 99283; J2405

== ENCOUNTER 2019-11-16 10:02 | Emergency (ER) | payer MEDICAID, OTHER ==
[2019-11-16 10:42] LABS: ABS Basophils 0.1 10^3/ul (0-0.2); ABS Eosinophils 0.2 10^3/ul (0-0.6); ABS Lymphocytes 1.9 10^3/ul (1.0-4.8); ABS Monocytes 0.5 10^3/ul (0-0.8); ABS Neutrophils 4.2 10^3/ul (1.5-7.7); Eosinophil % 2.5 %; Hematocrit 38 % (42-52); Hemoglobin 12.9 g/dL (14.0-18.0); Lymphocyte % 28.2 %; Mean Corpuscular HGB Conc 34 g/dL (31-36); Mean Corpuscular Hemoglobin 29 pg (27-31); Mean Corpuscular Volume 85 fL (80-94); Mean Platelet Volume 7.4 fL (7.4-10.4); Platelet Count 265 10^3/uL (150-450); Red Blood Count 4.41 10^6 /uL (4.18-5.48); Red Cell Distribution Width 13 % (10-15); White Blood Count 6.9 10^3/uL (3.5-10.8)
[2019-11-16 10:59] LABS: ALT 36 U/L (7-52); AST 21 U/L (13-39); Albumin 3.6 g/dL (3.2-5.2); Albumin/Globulin Ratio 1.6 (1-3); Alkaline Phosphatase 94 U/L (34-104); Anion Gap 5 mmol/L (2-11); BUN/Creatinine Ratio 20.9 (8-20); Blood Urea Nitrogen 18 mg/dL (6-24); CO2 Carbon Dioxide 26 mmol/L (22-32); Calcium 8.5 mg/dL (8.6-10.3); Chloride 110 mmol/L (101-111); EGFR African American 123.9 (>60); EGFR Non-African American 102.4 (>60); Globulin 2.3 g/dL (2-4); Glucose 152 mg/dL (70-100); Magnesium 2.2 mg/dL (1.9-2.7); Potassium 3.5 mmol/L (3.5-5.0); Sodium 141 mmol/L (135-145); Total Protein 5.9 g/dL (6.4-8.9)
[2019-11-16 11:01] LABS: Troponin I 0.01 ng/mL (<0.03)
[2019-11-16 11:27] LABS: Acetaminophen < 15 mcg/mL; Alcohol < 10 mg/dL (<10)
[2019-11-16 14:56] LABS: Urine Appearance Clear; Urine Bilirubin Negative (Negative); Urine Blood Negative (Negative); Urine Color Yellow; Urine Glucose Negative (Negative); Urine Ketones Negative (Negative); Urine Nitrite Negative (Negative); Urine Protein Negative (Negative); Urine Specific Gravity 1.018 (1.010-1.030); Urine Urobilinogen Negative (Negative)
[2019-11-16 15:16] LABS: Urine Benzodiazepine Screen None Detected (None Detect); Urine Opiates Screen None Detected (None Detect)
[2019-11-16 15:48] VITALS: BP 132/80
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
== END 2019-11-16 15:39 | disposition home or self-care (01) ==
LOC: ED 10:02
DX: R41.82 Altered mental status, unspecified (principal); R53.83 Other fatigue; K08.89 Other specified disorders of teeth and supporting structures; M54.5 Low back pain; M41.24 Other idiopathic scoliosis, thoracic region; M51.34 Other intervertebral disc degeneration, thoracic region; M50.323 Other cervical disc degeneration at C6-C7 level; S09.90XA Unspecified injury of head, initial encounter; Y92.9 Unspecified place or not applicable; Y08.89XA Assault by other specified means, initial encounter; Z88.5 Allergy status to narcotic agent; Z87.891 Personal history of nicotine dependence
CPT/HCPCS: 36415; 70450; 72125; 72128; 72131; 80053; 80307; 80320; 80329; 81003; 83605; 83735; 84484; 85025; 93005; 99284; G0480

== ENCOUNTER 2020-01-04 18:52 | Emergency (ER) | payer BC, OTHER ==
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
[2020-01-04] MEDS ORDERED: Tetan/Diph/Pertus SYR(Tdap)* 0.5 ML SYR(BOOSTRIX) use SYR contains LATEX IM ONE (19:30)
[2020-01-04] MEDS ORDERED: Acetaminophen TAB* 325 MG PO ONE (19:30)
[2020-01-04 20:31] VITALS: BP 132/85
== END 2020-01-04 20:15 | disposition home or self-care (01) ==
LOC: ED 18:52
DX: S61.214A Laceration without foreign body of right ring finger without damage to nail, initial encounter (principal); X58.XXXA Exposure to other specified factors, initial encounter; Y09 Assault by unspecified means; Y92.9 Unspecified place or not applicable; F17.210 Nicotine dependence, cigarettes, uncomplicated
CPT/HCPCS: 12001; 73140; 90471; 90715; 99282; A9270-GY